=== PATIENT | male | born 1990 | race Caucasian/White ===

== ENCOUNTER 2016-09-07 21:06 | Observation (INO) | payer MEDICAID ==
[2016-09-07 21:13] VITALS: RESP 16
[2016-09-07] MEDS ORDERED: VANCOMYCIN HCL/NORMAL SALINE 250 ML IV ONE (22:17)
--- NOTE | 2016-09-07 22:17 | EDPHY ---
H & P Stated Complaint: L thumb swelling, drug use Source: Patient Exam Limitations: No limitations - Personal History Current Tetanus/Diphtheria Vaccine: Yes Current Tetanus Diphtheria and Acellular Pertussis (TDAP): Yes Tetanus Vaccine Date: 2010 - Medical/Surgical History Hx Asthma: Yes Hx Chronic Respiratory Disease: No Hx Diabetes: No Hx Cardiac Disease: No Hx Renal Disease: No Hx Cirrhosis: No Hx Alcoholism: No Hx HIV/AIDS: No Hx Splenectomy or Spleen Trauma: No Other PMH: MRSA, chicken pox, inguinal double hernia, appy., opiate abuse - Social History Smoking Status: Current every day smoker Drug Use: Cocaine, Heroin Time Seen by Provider: 09/07/16 21:55 HPI/ROS: CHIEF COMPLAINT: Left thumb pain, left elbow pain HISTORY OF PRESENT ILLNESS: 26-year-old male presents emergency department complaining of left thumb and left elbow pain. Patient is an IV drug user and reports he missed a vein in his left thumb and left elbow 3 days ago. Patient reports increasing pain and swelling. Patient reports subjective fevers and chills today. He states he is unable to fully move his thumb and elbow. Patient is injecting heroin and cocaine. Patient reports a history of MRSA. He denies chest pain or shortness of breath. REVIEW OF SYSTEMS: A comprehensive 10 point review of systems is otherwise negative aside from elements mentioned in the history of present illness. (Erin Almodovar) - Physical Exam Exam: Physical Exam Gen: Alert and Oriented, NAD HEENT: PERRL, moist mucous membranes NECK: no meningismus CV: Tachycardic rate and regular rhythm PULM: CTAB, no wheezes ABDOMEN: soft, non tender to palpation, BS present BACK: No CVA tenderness NEURO: Neurologically grossly intact EXTREMITIES: Left thumb with swelling and tenderness with erythema dorsally. Pain with flexion and extension. No pain along flexion sheath. Left elbow lacks 5 degrees of extension and 20 degrees of flexion. Diffuse swelling. Area of induration and fluctuance to left lateral elbow. SKIN: Multiple scabs and injection norris to bilateral upper extremities. PSYCH: answers questions appropriately. (Erin Almodovar) Constitutional: Initial Vital Signs Temperature (C) 36.9 C 09/07/16 21:09 Heart Rate 113 H 09/07/16 21:09 Respiratory Rate 16 09/07/16 21:09 Blood Pressure 143/73 H 09/07/16 21:09 O2 Sat (%) 93 09/07/16 21:09 O2 Delivery Mode Room Air Allergies/Adverse Reactions: No Known Allergies Allergy (Verified 09/07/16 21:09) Home Medications: Medication Instructions Recorded NK [No Known Home Meds] 12/15/15 Medical Decision Making Procedures: Procedure: Incision and Drainage abscess. The patient's abscess was located on the left elbow. Risks, benefits, alternatives discussed with the patient and consent obtained. The area was prepped and draped in sterile fashion. The patient received local anesthesia with 1% lidocaine with epinephrine. The abscess was incised with a #11 blade and no purulent drainage was expressed. The patient tolerated the procedure well. The procedure was performed by myself. (Erin Almodovar) ED Course/Re-evaluation: IV established, CBC and chemistry panel and lactic acid obtained. Blood cultures ordered. 1 g of vancomycin has been ordered. I attempted to I and D a left elbow abscess no purulent drainage return, induration is likely scar tissue. Patient has a WBC [id number] with a shift. He will be admitted to the hospitalist for IV antibiotics and observation. (Erin Almodovar) Other Provider: INDEPENDENT PHYSICIAN DOCUMENTATION I evaluated and participated in the management of the patient. I also evaluated the patient independently. My co-signature indicates that I have reviewed this chart and I agree with the findings and plan of care as documented. My personal H&P findings include: The patient has a history of IV drug abuse. The patient presents to the ED with a abscess adjacent to his left elbow. The patient also has left thumb cellulitis. The patient has no clinical evidence of a septic arthritis involving his thumb joint or elbow. The patient's abscess will be drain by the nurse practitioner. The patient will be admitted to the hospital started on IV vancomycin for treatment of cellulitis. (Robel Bearden) - Data Points Laboratory Results: Laboratory Results 09/07/16 22:05 09/07/16 22:05 09/07/16 09/07/16 22:05 22:05 WBC 15.04 10^3/uL H 10^3/uL (3.80-9.50) RBC 4.56 10^6/uL 10^6/uL (4.40-6.38) Hgb 13.9 g/dL g/dL (13.7-17.5) Hct 41.1 % % (40.0-51.0) MCV 90.1 fL fL (81.5-99.8) MCH 30.5 pg pg (27.9-34.1) MCHC 33.8 g/dL g/dL (32.4-36.7) RDW 13.7 % % (11.5-15.2) Plt Count 310 10^3/uL 10^3/uL (150-400) MPV 9.5 fL fL (8.7-11.7) Neut % (Auto) 80.5 % H % (39.3-74.2) Lymph % (Auto) 11.8 % L % (15.0-45.0) Craven % (Auto) 6.6 % % (4.5-13.0) Eos % (Auto) 0.3 % L % (0.6-7.6) Baso % (Auto) 0.3 % % (0.3-1.7) Nucleat RBC Rel Count 0.0 % % (0.0-0.2) Absolute Neuts (auto) 12.13 10^3/uL H 10^3/uL (1.70-6.50) Absolute Lymphs (auto) 1.77 10^3/uL 10^3/uL (1.00-3.00) Absolute Monos (auto) 0.99 10^3/uL H 10^3/uL (0.30-0.80) Absolute Eos (auto) 0.04 10^3/uL 10^3/uL (0.03-0.40) Absolute Basos (auto) 0.04 10^3/uL 10^3/uL (0.02-0.10) Absolute Nucleated RBC 0.00 10^3/uL 10^3/uL (0-0.01) Immature Gran % 0.5 % % (0.0-1.1) Immature Gran # 0.07 10^3/uL 10^3/uL (0.00-0.10) Sodium 135 mEq/L mEq/L (134-144) Potassium 4.5 mEq/L mEq/L (3.5-5.2) Chloride 100 mEq/L mEq/L (97-110) Carbon Dioxide 23 mEq/l mEq/l (22-31) Anion Gap 12 mEq/L mEq/L (8-16) BUN 10 mg/dL mg/dL (7-23) Creatinine 0.7 mg/dL mg/dL (0.7-1.3) Estimated GFR > 60 Glucose 117 mg/dL H mg/dL (70-100) Calcium 9.6 mg/dL mg/dL (8.5-10.4) Departure - Departure Disposition: [facility] Inpatient Acute Clinical Impression: Cellulitis Qualifiers: Site of cellulitis: extremity Site of cellulitis of extremity: finger Laterality: left Qualified Code(s): L03.012 - Cellulitis of left finger Condition: Fair Referrals: NONE *PRIMARY CARE P,. [Primary Care Provider] - As per Instructions
[2016-09-07 22:19] LABS: % IMMATURE GRANULYOCYTES 0.5 % (0.0-1.1); ABSOLUTE IMMATURE GRANULOCYTES 0.07 10^3/uL (0.00-0.10); ADD DIFF? NO; ADD MORPH? NO; ADD SCAN? NO; ATYPICAL LYMPHOCYTE FLAG 20 (0-99); FRAGMENT RBC FLAG 0 (0-99); HEMATOCRIT 41.1 % (40.0-51.0); HEMOGLOBIN 13.9 g/dL (13.7-17.5); LEFT SHIFT FLG 0 (0-99); LIPEMIA HEMOLYSIS FLAG 90 (0-99); MEAN CELL HEMOGLOBIN 30.5 pg (27.9-34.1); MEAN CELL HEMOGLOBIN CONCENTR. 33.8 g/dL (32.4-36.7); MEAN CELL VOLUME 90.1 fL (81.5-99.8); MEAN PLATELET VOLUME 9.5 fL (8.7-11.7); PLATELET CLUMPS FLAG 10 (0-99); PLATELET COUNT 310 10^3/uL (150-400); RED BLOOD CELL COUNT 4.56 10^6/uL (4.40-6.38); RED CELL DISTRIBUTION WIDTH 13.7 % (11.5-15.2)
[2016-09-07 22:30] LABS: ANION GAP 12 mEq/L (8-16); CALCIUM 9.6 mg/dL (8.5-10.4); CARBON DIOXIDE 23 mEq/l (22-31); CHLORIDE 100 mEq/L (97-110); CREATININE 0.7 mg/dL (0.7-1.3); GLOMERULAR FILTRATION RATE > 60; GLUCOSE 117 mg/dL (70-100); POTASSIUM 4.5 mEq/L (3.5-5.2); SODIUM 135 mEq/L (134-144)
[2016-09-07] MEDS ORDERED: ACETAMINOPHEN 325 MG TAB PO PRN (23:24)
[2016-09-07] MEDS ORDERED: ONDANSETRON 4 MG/2 ML VIAL IVP PRN (23:24)
[2016-09-07] MEDS ORDERED: NS 1,000 ML IV SCH (23:30)
[2016-09-07 23:34] LABS: BILIRUBIN,TOTAL 1.3 mg/dL (0.1-1.4)
[2016-09-08 00:54] LABS: INR 1.16 (0.83-1.16); PROTIME(PATIENT) 14.8 SEC (12.0-15.0)
[2016-09-08 00:55] LABS: APTT 29.2 SEC (23.0-38.0)
[2016-09-08] MEDS ORDERED: IBUPROFEN 600 MG TAB PO PRN (00:59)
--- NOTE | 2016-09-08 02:56 | GHP ---
[f rep st] HISTORY AND PHYSICAL DATE OF ADMISSION: 09/07/2016 CHIEF COMPLAINT: Left thumb and arm pain. HISTORY: The patient is a 26-year-old IV drug abusing male, who presents with left arm pain and swe lling. He has a long-standing history of IV drug abuse and recently relapsed. Prior to this, he wa s clean for 10 months. He does not have very good veins and has been missing when trying to inject himself. He now has 2 days of increasing left forearm erythema, redness, and pain. He does have so me localization to the left thumb. There is erythema up over most of the forearm, and then again so me possible localization in the left elbow. He is able to move the left elbow with good range of mo tion without increased pain. The left thumb, however, is swollen with decreased range of motion. Eliud almanzar has not had any fevers. There has been no chest pain, shortness of breath. He does not share nee dles and was HIV tested within the last few months. He is desiring detox and yet again quitting thi s habit. PAST MEDICAL HISTORY: Negative. MEDICATIONS: None. ALLERGIES: No known drug allergies. SOCIAL HISTORY: He smokes 5 cigarettes per day. He abuses IV drugs preferably heroin, but will use IV cocaine if he cannot get a hold of heroin. He occasionally will smoke marijuana. He lives with his uncle and grandmother in [place]. He works at [employer]. REVIEW OF SYSTEMS: Complete review of systems obtained. Review of systems is negative regarding CO NSTITUTIONAL, HEENT, GI, PULMONARY, CARDIOVASCULAR, , HEMATOLOGY, SKIN, MUSCULOSKELETAL, ENDOCRINE , PSYCH except for positives and negatives as in HPI. FAMILY HISTORY: Unknown, as he is adopted. He has no knowledge of his parents. PHYSICAL EXAMINATION: GENERAL: Well-developed, well-nourished male, in no acute distress. VITAL S IGNS: Temperature is 36.9, pulse 113, blood pressure 143/73, saturating 93% on room air. EYES: No rmal conjunctivae. Pupils react to light. ENT: Normal ears and nose. Hearing intact. Normal maría th. Oropharynx moist. NECK: Trachea midline. No thyromegaly. CHEST: Normal respiratory effort. LUNGS: Clear to auscultation bilaterally. CARDIOVASCULAR: Regular rhythm. No murmur. No lower extremity edema. ABDOMEN: Soft, nontender. No hepatosplenomegaly. SKIN: Left arm has erythema across the entire forearm, although with some localization at the left elbow and the left thumb. Go od range of motion at the elbow, some is swollen and decreased range of motion due to edema. There is no pus or a fluctuant abscess evident. MUSCULOSKELETAL: No cyanosis or clubbing. Strength 5/5 upper and lower extremities. NEUROLOGIC: Cranial nerves intact. Normal sensation to light touch. PSYCH: Alert and oriented x3. Normal affect. Normal judgment memory. ASSESSMENT AND PLAN: 1. Left arm cellulitis. There is a possibility of septic joint of the left thumb and left elbow. I do see good range of motion at his elbow. Will watch the thumb very closely. Continue IV vancomy alexi. Will assess for possible need to aspirate the joints. Will consult Infectious Disease. 2. Sepsis. He is tachycardic and has leukocytosis consistent with systemic inflammatory response s yndrome. Blood cultures are pending. He does not have a murmur. 3. Intravenous drug abuse. Will check an HIV. 4. Tobacco dependence. Will place a nicotine patch. CODE STATUS: Full. ADMISSION STATUS: Will admit to observation as clinical course will depend length of stay needed. DVT PROPHYLAXIS: He is low risk. No pharmacologic prophylaxis at this time. /[id number]/MODL
[2016-09-08 05:30] VITALS: BP 98/49; PULSE 80; TEMP 98.6; O2SAT 93
[2016-09-08] MEDS ORDERED: NICOTINE 14 MG/24 HR PATCH TD SCH (09:00)
[2016-09-08] MEDS ORDERED: LORazepam 1 MG TAB PO PRN (09:07)
[2016-09-08] MEDS ORDERED: hydrOXYzine HCL 25 MG TAB PO PRN (09:07)
[2016-09-08] MEDS ORDERED: OLANZapine DISINTEGR 5 MG TAB PO PRN (09:07)
[2016-09-08] MEDS ORDERED: IPRATROPIUM 0.03% NASAL SPRAY EACHNARE PRN (09:07)
[2016-09-08] MEDS ORDERED: LOPERAMIDE HCL 2 MG CAP PO PRN (09:07)
--- NOTE | 2016-09-08 10:13 | PDDCSUM ---
Discharge Summary Discharge Summary: Dates of service 09/07-09/08/16 Discharge dx: # cellulitis # IVDA # opiate withdrawal # sepsis Consultations: ID Procedures: attempted I&D Hospital course by problem: # cellulitis: in the setting of chronic IV drug abuse and localized largely to thumb, no e/o joint involvement or abscess. ID involved. Patient very eager to dc, was sent home with oral doxy and was not able to stay for his morning vanco infusion # IV drug abuse: states he is interested in quitting but also a bit aggravated at questions around this and states he feels judged unfairly by hospital staff. He does have support and plans to go to [facility] after dc. # opiate withdrawal: as above plans to go to [facility], sxs mild, given opiates x 1 in house to mitigate w/d # sepsis: resolved, related to cellulitis, HD stable Dc home with plan to check in to the [facility], discharged with his father Meds: dc with doxycycline > 35 min spent in dc of patient and coordination of care
[2016-09-08] MEDS ORDERED: VANCOMYCIN 1.25 GM in D5W 250 ML IV SCH (11:00)
--- NOTE | 2016-09-08 14:03 | GCON ---
[f rep st] CONSULTATION DATE OF CONSULTATION: 09/08/2016 REFERRING PHYSICIAN: Loreto Leonard MD REASON FOR CONSULTATION: Left upper extremity cellulitis. HISTORY OF PRESENT ILLNESS: This is a 26-year-old male with multiple admissions related to complica tions related to IV drug abuse including left forearm abscess in 2015 and MRI infection due to MRSA in 2009. Patient has longstanding use of IV drug abuse as well as cocaine use[facility]. Prior to that, he was clean for 10 months. Approximately 2 days prior to presentation in the emergency room yesterday, patient had 2 days of increasing pain in his left forearm and left thumb and presented to the emergency room for evaluation. In the emergen cy room, patient was found to have a localized cellulitis on his upper forearm adjacent to his elbow and his left thumb on the dorsal surface. Patient received IV fluids, IV vancomycin, and was found to have a leukocytosis of 15,000. Patient was admitted for IV antibiotics. In the interim, HIV sc reening was negative. Patient reports that he always uses clean needles but does not clean his skin . PAST MEDICAL HISTORY: 1. Multiple skin abscesses with MRSA in 02/2010 and left forearm abscess in 11/2015. 2. Rectal foreign body in 07/2015. PAST SURGICAL HISTORY: Appendectomy and inguinal hernia repair. FAMILY HISTORY: Positive for IV drug use. ALLERGIES: NKDA. SOCIAL HISTORY: Positive for tobacco, IV drugs, heroin, cocaine, and marijuana. 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 REVIEW OF SYSTEMS: A complete 10-point review of systems was performed and is negative except as me ntioned in the HPI. PHYSICAL EXAMINATION: VITAL SIGNS: Blood pressure is 98/48, heart rate 113 on admission. He has b een afebrile throughout his hospital course. GENERAL: This is a young male sitting in bed in no ac zeb distress. HEENT: Unremarkable without obvious dental caries. NECK: Supple. CARDIOVASCULAR: Regular rate, no murmurs. CHEST: Clear to auscultation bilaterally. ABDOMEN: Benign. EXTREMITI ES: Patient was extensively tattooed. He had erythema on the dorsal surface of his thumb with inta ct range of motion and a small area of erythema on his lower upper arm with an incision medially linn t showed no purulence. Patient reports clinical improvement. No joint swelling. No lower extremit y edema. NEUROLOGIC: He is alert and oriented x4. Somewhat agitated. Ambulating without difficul ty. LABORATORY: White count 15,000, hematocrit 41, platelets of 310. Creatinine 0.7. HIV negative. ASSESSMENT AND PLAN: This is a 26-year-old male with IV drug abuse with localized cellulitis relate d to injection drug use. Patient is clinically improving overnight and is clinically stable. No ev idence of abscess on exam or joint involvement. 1. Will follow blood cultures to assure no bacteremia but patient has no peripheral stigmata of end ocarditis or cardiac murmur. 2. Would give 1 more dose of IV vancomycin today at 11:30 and discharge patient on doxycycline 100 mg twice daily for 7 more days. Thank you for this consultation. No outpatient followup is needed. /[id number]/MODL
== END 2016-09-08 11:12 | disposition home or self-care (01) ==
LOC: F1N 09-08 00:50
PROVIDERS: ADMIT Internal Medicine; ATTEND Internal Medicine
PROC: 0H9CXZZ Drainage of Left Upper Arm Skin, External Approach (ICD-10-PCS; principal; 2016-09-07)
PROC: 3E03329 Introduction of Other Anti-infective into Peripheral Vein, Percutaneous Approach (ICD-10-PCS; 2016-09-08)
DX: L03.114 Cellulitis of left upper limb (principal); L03.012 Cellulitis of left finger; F19.10 Other psychoactive substance abuse, uncomplicated; F11.23 Opioid dependence with withdrawal; A41.9 Sepsis, unspecified organism; F17.200 Nicotine dependence, unspecified, uncomplicated; Z86.14 Personal history of Methicillin resistant Staphylococcus aureus infection
CPT/HCPCS: 10060; 96365; 99285; G0378; J3370

== ENCOUNTER 2016-09-10 17:22 | Emergency (ER) | payer MEDICAID ==
[2016-09-10 17:31] VITALS: TEMP 98.2; O2SAT 97
[2016-09-10 17:32] VITALS: BP 132/88; PULSE 82; RESP 16
--- NOTE | 2016-09-10 17:41 | EDPHY ---
H & P Stated Complaint: prior L thumb infection has now blistered, swelling much improved Time Seen by Provider: 09/10/16 17:40 HPI/ROS: CHIEF COMPLAINT: Abscess on dorsum of left thumb HISTORY OF PRESENT ILLNESS: The patient presents to the ED with complaints of an abscess which is developed on the dorsum of his left thumb. The patient was admitted to the hospital approximately 6 days ago for IV antibiotics for a cellulitis to the extremity. The patient was discharged on doxycycline. Reports that he has been compliant with his doxycycline. He is noted some superficial swelling in the dorsum of his left thumb. The patient denies any pain in the left thumb joint per se. He has no complaints of numbness or weakness. The patient reports that he did have an abscess which was drained on his left elbow earlier in the week which has been recovering nicely. REVIEW OF SYSTEMS: A comprehensive 10 point review of systems is otherwise negative aside from elements mentioned in the history of present illness. Source: Patient Exam Limitations: No limitations - Personal History Current Tetanus/Diphtheria Vaccine: Unsure Current Tetanus Diphtheria and Acellular Pertussis (TDAP): Unsure Tetanus Vaccine Date: 2010 - Medical/Surgical History Hx Asthma: Yes Hx Chronic Respiratory Disease: No Hx Diabetes: No Hx Cardiac Disease: No Hx Renal Disease: No Hx Cirrhosis: No Hx Alcoholism: No Hx HIV/AIDS: No Hx Splenectomy or Spleen Trauma: No Other PMH: MRSA, chicken pox, inguinal double hernia, appy., opiate abuse - Social History Smoking Status: Current every day smoker - Physical Exam Exam: General Appearance: Alert, no distress Eyes: Pupils equal and round no pallor or injection ENT, Mouth: Mucous membranes moist Respiratory: There are no retractions, lungs are clear to auscultation Cardiovascular: Regular rate and rhythm Gastrointestinal: Abdomen is soft and nontender, no masses, bowel sounds normal Neurological: A&O, normal motor function, normal sensory exam, normal cranial nerves Skin: Evidence of healing abscess noted in the area of the left elbow, no clinical evidence of a recurrent abscess in the left elbow. Evidence of a small superficial abscesses noted over the dorsum of the left thumb Musculoskeletal: Neck is supple nontender Extremities: Symmetric, normal range of motion without clinical evidence of septic arthritis noted in the left 1st finger Constitutional: Initial Vital Signs Temperature (C) 36.8 C 09/10/16 17:29 Heart Rate 82 09/10/16 17:29 Respiratory Rate 16 09/10/16 17:29 Blood Pressure 132/88 H 09/10/16 17:29 O2 Sat (%) 97 09/10/16 17:29 O2 Delivery Mode Room Air Allergies/Adverse Reactions: No Known Allergies Allergy (Verified 09/07/16 21:09) Home Medications: Medication Instructions Recorded Acetaminophen [Tylenol 325mg (*)] 650 mg PO Q4 PRN #0 tab 09/08/16 Doxycycline Hyclate 100 mg PO BID #26 capsule 09/08/16 Ibuprofen [Motrin (*)] 600 mg PO Q6HRS PRN #0 tab 09/08/16 Medical Decision Making Procedures: Procedure: Abscess drainage. The patient's abscess was located on the left thumb. Risks, benefits, alternatives discussed with the patient and consent obtained. The abscess was incised with a #11 blade and purulent drainage was expressed. The wound was irrigated. The patient tolerated the procedure well. The procedure was performed by myself. ED Course/Re-evaluation: The patient presents with a recurrent abscess to his left thumb. He has no clinical evidence of a septic arthritis. He underwent an uneventful incision and drainage of a small left thumb abscess which resulted in approximately 2 mL of purulent drainage. The patient is currently taking doxycycline for a soft tissue infection. He is encouraged to continue this medication. He is discharged home with instructions to return to the ED for severe pain, recurrent swelling, pain in the joint or other concerns. Differential Diagnosis: Differential diagnosis considered includes cellulitis, abscess, necrotizing fasciitis, septic arthritis Departure - Departure Disposition: Home, Routine, Self-Care Clinical Impression: Abscess of left hand Condition: Good Instructions: Abscess (ED) Additional Instructions: 1. Continue antibiotics as directed. 2. Please return to the ED for increased pain, redness, swelling, fever or other concerns. 3. Please follow up with Dr. Reyes from Infectious Disease as scheduled. Referrals: Barbara Reyes MD [Medical Doctor] - As per Instructions
== END 2016-09-10 18:16 | disposition home or self-care (01) ==
PROC: 0J9K0ZZ Drainage of Left Hand Subcutaneous Tissue and Fascia, Open Approach (ICD-10-PCS; principal; 2016-09-10)
DX: L02.512 Cutaneous abscess of left hand (principal); J45.909 Unspecified asthma, uncomplicated; F17.200 Nicotine dependence, unspecified, uncomplicated
CPT/HCPCS: A4565

== ENCOUNTER 2017-05-27 16:58 | Emergency (ER) | payer MEDICAID ==
[2017-05-27 17:13] VITALS: RESP 18; TEMP 98.2; O2SAT 96
--- NOTE | 2017-05-27 17:26 | EDPHY ---
H & P Time Seen by Provider: 05/27/17 17:08 HPI/ROS: This patient presents with 2 shooter's abscesses. He explains that he was shooting heroin and cocaine 2 weeks ago-last use. He then presented to [facility] and avoided subsequent use but reports swelling and drainage from the right arm and redness and pain at the left calf-injection sites. He reports the pain is severe and has not taken medications for this. He arrived by private vehicle for evaluation of his symptoms. ROS: Constitutional: No fevers or chills. GI: No nausea vomiting Neuro: No numbness or tingling 5 point ROS is otherwise negative Past Medical/Surgical History: IV drug use Smoking Status: Current every day smoker Physical Exam: Physical Exam Vital signs are normal. General: No acute distress HEENT: Atraumatic. Eyes: Pupils equal and react to light. Extraocular motions are intact. Lungs: No respiratory distress. Cardiac: Brisk capillary refill is intact throughout. Pulses are 2+ and symmetric in the affected extremity. Skin: No rash or pallor. Neuro: Alert and oriented x3 with no sensorimotor deficits. Constitutional: Initial Vital Signs Temperature (C) 36.8 C 05/27/17 17:06 Heart Rate 97 05/27/17 17:06 Respiratory Rate 18 05/27/17 17:06 Blood Pressure 131/72 H 05/27/17 17:06 O2 Sat (%) 96 05/27/17 17:06 O2 Delivery Mode Room Air Allergies/Adverse Reactions: No Known Allergies Allergy (Verified 05/27/17 17:13) Home Medications: Medication Instructions Recorded Methadone HCl 05/27/17 Sulfamethox/Tmp 800/160 mg 1 tab PO BID #20 tab 05/27/17 [Bactrim Ds] MDM/Departure - MDM Procedures: Procedure: Abscess drainage. The patient's abscess was located on the right forearm Risks, benefits, alternatives discussed with the patient and consent obtained. The abscess was incised with 15. Gfbrh-[id number]-hdmgew incision, probed with Keturah clamp and purulent drainage was expressed. The wound was irrigated with 50 cc of saline and packed with quarter-inch gauze. The patient tolerated the procedure well The procedure was performed by myself. There were no complications. Procedure: Abscess drainage. The patient's 2nd abscess abscess was located on the left leg. Risks, benefits , alternatives discussed with the patient and consent obtained. The abscess was incised with 15. Blade, T-shaped incision and purulent drainage was expressed. The wound was irrigated with 50 cc saline under pressure and packed with quarter-inch gauze.The patient tolerated the procedure well. The procedure was performed by myself. There were no complications. ED Course/Re-evaluation: Discussion: Patient with 2 shooter's abscess is I indeed with localized cellulitis to the arm more than the leg. Will treat him with Bactrim antibiotic with wound culture pending. Encouraged him to continue his abstinence from IV drug use. Counseled regarding wound care. He understands need to return should she develop any worsening despite treatment plan. No evidence of sepsis or other complicating factors tonight. - Depart Disposition: Home, Routine, Self-Care Clinical Impression: Abscess of arm, right, Abscess of leg, left Condition: Good Instructions: Abscess (ED) Additional Instructions: Diagnosis: Arm and leg abscess with cellulitis Plan: Apply warm packs to the affected area to 3 times a day Gently clean believe the packing in place for the next 3 days. Then removed the packing and clean with warm soapy water daily. Bactrim antibiotic as prescribed Ibuprofen Tylenol for pain as needed Return for any significant worsening despite the treatment plan. Prescriptions: Sulfamethox/Tmp 800/160 mg [Bactrim Ds] 1 tab PO BID #20 tab Referrals: NONE *PRIMARY CARE P,. [Primary Care Provider] - As per Instructions Jay Jay Moreno MD [Medical Doctor] - As per Instructions
[2017-05-27] MEDS ORDERED: IBUPROFEN 600 MG TAB PO ONE (17:41)
[2017-05-27 18:49] VITALS: BP 130/70; PULSE 92
== END 2017-05-27 18:39 | disposition home or self-care (01) ==
LOC: CED 16:58
DX: L02.416 Cutaneous abscess of left lower limb (principal); L02.413 Cutaneous abscess of right upper limb; F17.200 Nicotine dependence, unspecified, uncomplicated